=== PATIENT | female | born 1970 | race African-American/Black ===

== ENCOUNTER 2024-08-10 08:14 | Emergency (ER) | payer BC, OTHER ==
[~2024-08-10 08:14] MED LIST: CEPHALEXIN500 M1 PO; CEPHALEXIN500 MG PO; FAMOTIDINE20 MG PO; ONDANSETRON ODT4 MG PO
== END 2024-08-10 08:31 | disposition short-term general hospital (02) ==
LOC: FSED 08:31
DX: R06.02 Shortness of breath (principal)